=== PATIENT | female | born 2000 | race Caucasian/White ===

== ENCOUNTER 2020-04-03 14:26 | Emergency (ER) | payer OTHER ==
[~2020-04-03] VITALS: Ht 167.6 cm; Wt 67.6 kg
[2020-04-03 14:26] VITALS: BP 129/65
[2020-04-03] MEDS ORDERED: IBUPROFEN 600 MG TABLET. PO ONE (15:00)
--- NOTE | 2020-04-03 15:04 | PHYS DOC ---
Past History Past Medical History: No Pertinent History Past Surgical History: No Surgical History Smoking: Non-smoker Alcohol Use: None General Adult EDM: Chief Complaint: LOWEREXTREMITY INJURY HPI: HPI: Patient is a 19 year old female who presents for evaluation of right knee pain after injury. Last night she had a horse fall on her right leg. There is some bruising and swelling present to the affected knee and just above the knee. She is able to bear weight however. She came here for evaluation. She is able to bend her knee without much difficulty. There is no other reported injuries Review of Systems: Review of Systems: Constitutional: Denies fever or chills Eyes: Denies change in visual acuity HENT: Denies nasal congestion or sore throat Respiratory: Denies cough or shortness of breath Cardiovascular: Denies chest pain or edema GI: Denies abdominal pain, nausea, vomiting, bloody stools or diarrhea : Denies dysuria Musculoskeletal: Denies back pain has right knee joint pain Integument: Denies rash Neurologic: Denies headache, focal weakness or sensory changes Endocrine: Denies polyuria or polydipsia Lymphatic: Denies swollen glands Psychiatric: Denies depression or anxiety Heart Score: Risk Factors: Risk Factors: DM, Current or recent (<one month) smoker, HTN, HLP, family history of CAD, obesity. Risk Scores: Score 0 - 3: 2.5% MACE over next 6 weeks - Discharge Home Score 4 - 6: 20.3% MACE over next 6 weeks - Admit for Clinical Observation Score 7 - 10: 72.7% MACE over next 6 weeks - Early Invasive Strategies Current Medications: Current Meds: Current Medications Medications (Trade) Dose Ordered Sig/[facility] Start Time Stop Time Status Last Admin Dose Admin Ibuprofen (Motrin) 600 mg 1X ONCE 04/03/20 15:00 04/03/20 15:01 04/03/20 14:43 600 MG Allergies: Allergies: Allergies Coded Allergies Type Severity Reaction Last Updated Verified No Known Drug Allergies 04/03/20 No Physical Exam: PE: Constitutional: Well developed, well nourished, mild acute distress, non-toxic appearance. [] HENT: Normocephalic, atraumatic, bilateral external ears normal, oropharynx moist, no oral exudates, nose normal. [] Eyes: PERRL, EOMI, conjunctiva normal, no discharge. [] Neck: Normal range of motion, no tenderness, supple, no stridor. [] Cardiovascular:Heart rate regular rhythm, no murmur [] Lungs & Thorax: Bilateral breath sounds clear to auscultation [] Abdomen: Bowel sounds normal, soft, no tenderness, no masses. [] Skin: Warm, dry, no erythema, no rash. [] Back: No tenderness. [] Extremities: mild tenderness right knee, no cyanosis, ROM intact, mild edema right knee, not ballotable. [] Neurologic: Alert and oriented, normal motor function, normal sensory function, no focal deficits noted. [] Psychologic: Affect normal, judgement normal, mood normal. [] Current Patient Data: Vital Signs: Vital Signs Date Time Temp Pulse Resp B/P (MAP) Pulse Ox O2 Delivery O2 Flow Rate FiO2 04/03/20 14:26 97.8 74 16 129/65 (86) 99 Room Air EKG: EKG: [] Radiology/Procedures: Radiology/Procedures: [place] [address] IMAGING REPORT Signed PATIENT: KUSUM HENDERSON ACCOUNT: [id number] : 2000 LOCATION: ER AGE: 19 SEX: F EXAM STATUS: REG ER ORD. PHYSICIAN: YAMIL GAFFNEY DO REASON: pain, crush injury from a horse PROCEDURE: KNEE RIGHT 3V Study: CR KNEE RIGHT 3V Indication: Pain. Crush injury. Comparison: None. Findings: Knee alignment is maintained. No acute fracture. On the true lateral view there appears to be a small effusion at the suprapatellar recess. Eccentrically located, subcortical lucent focus within the distal femoral diaphysis with surrounding sclerosis that extends upwards along the medullary cavity. No cortical scalloping or erosion. Impression: 1. No acute fracture or malalignment. There may be a small suprapatellar knee joint effusion. 2. Lucent focus within the distal femoral diaphysis typical of a nonossifying fibroma. No dedicated follow-up is needed unless there is development of pain referrable to this region. Electronically signed by: RAPHAEL DAVIS MD (04/03/2020 2:59 PM) [id number] DICTATED AND SIGNED BY: RAPHAEL DAVIS MD DATE: 04/03/20 2203 CC: JOVANY VICKERS MD; YAMIL GAFFNEY DO ~ [] Course & Med Decision Making: Course & Med Decision Making Pertinent Labs and Imaging studies reviewed. (See chart for details) [] Dragon Disclaimer: Dragon Disclaimer: This electronic medical record was generated, in whole or in part, using a voice recognition dictation system. 1510 stable, feeling better at this time. Will give knee immobilizer. I offered crutches or patient states she can get around without them. 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 She was see her doctor regarding this condition for any additional imaging studies or work-up needed Departure Departure: Impression: Primary Impression: Contusion of right knee Qualified Codes: S80.01XA - Contusion of right knee, initial encounter Additional Impressions: Effusion, right knee Fibroma of bone Disposition: HOME/RESIDENCE PRIOR TO ADM Condition: STABLE Referrals: JOVANY VICKERS MD (PCP) Patient Instructions: Knee Effusion, Knee Sprain Additional Instructions: You have an incidental finding of a nonossifying fibroma to your distal right femur, see DrJatinder regarding this condition as well as the swelling and effusion on your right knee from the acute injury. Wear the knee immobilizer for the next several days, rest ice and elevate the knee for the next 24 hours Justification of Admission: Justification of Admission: Justification of Admission Dx: N/A YAMIL GAFFNEY DO Apr 03, 2020 15:04
== END 2020-04-03 15:24 | disposition home or self-care (01) ==
LOC: ER 14:26
DX: S80.01XA Contusion of right knee, initial encounter (principal); M89.8X5 Other specified disorders of bone, thigh; W17.89XA Other fall from one level to another, initial encounter; Y93.89 Activity, other specified; Y92.89 Other specified places as the place of occurrence of the external cause; Y99.8 Other external cause status
CPT/HCPCS: 29505; 73562; 99283